=== PATIENT | female | born 1975 | race Caucasian/White ===

== ENCOUNTER 2022-06-05 10:18 | Day surgery (SDC) | payer BC ==
[~2022-06-05 10:18] MED LIST: Lactated Ringers 1,000 ML IV SCH; Lidocaine 1%/Sod Bicarbonate in NS 8.4% 1 ML Syringe IDERM PRN; Sodium Chloride 0.9% 10 ML Syringe FLUSH PRN; Sodium Chloride 0.9% 10 ML Syringe FLUSH SCH
[2022-06-05] MEDS ORDERED: Propofol 200 MG/20 ML SDV ONE (11:17)
[2022-06-05] MEDS ORDERED: Lidocaine 1% 4 ML ONE (11:17)
[2022-06-05] MEDS ORDERED: Midazolam 1 MG/ML 2 ML SDV ONE (11:18)
[2022-06-05] MEDS ORDERED: fentaNYL 100 MCG/2 ML SDV ONE (11:18)
[2022-06-05 18:15] VITALS: BP 126/81; PULSE 62
== END 2022-06-05 12:52 | disposition home or self-care (01) ==
LOC: JD.SDS 10:18
PROVIDERS: ATTEND Surgery
DX: Z12.11 Encounter for screening for malignant neoplasm of colon (principal); K64.9 Unspecified hemorrhoids; J45.909 Unspecified asthma, uncomplicated; E03.9 Hypothyroidism, unspecified; F32.A Depression, unspecified; K21.9 Gastro-esophageal reflux disease without esophagitis; E66.9 Obesity, unspecified; Z90.49 Acquired absence of other specified parts of digestive tract; Z88.2 Allergy status to sulfonamides; Z88.8 Allergy status to other drugs, medicaments and biological substances; Z98.890 Other specified postprocedural states; Z79.890 Hormone replacement therapy; Z79.899 Other long term (current) drug therapy; Z68.42 Body mass index [BMI] 45.0-49.9, adult
CPT/HCPCS: 45378; 81025; J2250; J2704; J3010; J7120; 00812

== ENCOUNTER 2024-01-08 06:30 | Day surgery (SDC) | payer BC ==
[~2024-01-08 06:30] MED LIST changes: -Lidocaine 1%/Sod Bicarbonate in NS 8.4% 1 ML Syringe IDERM PRN
[2024-01-08] MEDS: Bupivacaine 0.25% 10 ML SDV ONE (07:08)
[2024-01-08] MEDS: Lidocaine 1% 10 ML MDV ONE (07:08)
[2024-01-08 07:46] VITALS: BP 120/70; PULSE 61
== END 2024-01-08 07:35 | disposition home or self-care (01) ==
LOC: JD.SDS 06:30
PROVIDERS: ATTEND Orthopaedic Surgery
DX: G56.11 Other lesions of median nerve, right upper limb (principal); J45.909 Unspecified asthma, uncomplicated; E03.9 Hypothyroidism, unspecified; K21.9 Gastro-esophageal reflux disease without esophagitis; Z79.890 Hormone replacement therapy; Z79.899 Other long term (current) drug therapy
CPT/HCPCS: 64721; J3490